=== PATIENT | male | born 1990 | race Caucasian/White ===

== ENCOUNTER → 2019-10-23 | Outpatient (CLI) | payer OTHER | END | disposition home or self-care (01) | LOC: LABWHC1 11:18 | PROVIDERS: ATTEND Orthopaedic Surgery | DX: E55.9 Vitamin D deficiency, unspecified (principal); M79.645 Pain in left finger(s); S62.641D Nondisplaced fracture of proximal phalanx of left index finger, subsequent encounter for fracture with routine healing | CPT/HCPCS: 36415; 82306 ==